=== PATIENT | male | born 1975 | race Caucasian/White ===

== ENCOUNTER 2016-12-28 16:37 | Emergency (ER) | payer MEDICAID ==
[~2016-12-28] VITALS: Ht 182.9 cm; Wt 131.5 kg
[2016-12-28 17:01] LABS: HEMOGLOBIN 16.1 g/dL (14.1-18.0); LYMPH # 1.2 K/mm3 (0.7-4.5); LYMPH % 14.6 % (10-50)
--- NOTE | 2016-12-28 17:09 | Emergency Room Report ---
History of Present Illness Time Seen by [id number] Presenting Problem in Triage Pt arrived:Walked Presenting Problem:PT C/O UPPER EPIGASTRIC PAIN THAT STARTED SUDDENLY THIS AM. 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 N Clinical Suspician of Infection? N Mental Status: 1 - Regular (Normal Baseline) Sepsis Risk:Low Sepsis Risk Have you (or family members/close friends) recently traveled outside the [place]? N If Yes, where/when: Have you had exposure to infectious disease within the past month? N TB? Other? Specify: Epigastric pain, acute onset at 0445 this morning while driving to work. Has hot taste in mouth; pain nonradiating. Ate lunch today, just a few hours ago, but vomited it back up. No blood from above or below. No fever or cough; no chest pain; no urinary sx. No cardiac RF's. ALLERGIES Coded Allergies: No Known Allergies (12/28/16) Home Medications Reported Medications No Known Home Medications History Medical History General CAD? No Angina: No DC: No Hypertension? No Hyperlipidemia? No CHF? No DVT? No PE? No COPD? No Asthma? No Anemia? No GERD? No Gastric ulcers? No GI Bleed? No Hernia? No Thyroid Problems? No Hypothyroidism? No CVA? No Seizures? No Diabetes? No Renal Insuffiency? No End Stage Renal Disease? No UTI? No Stones? No BPH? No GB Disease: No Nephritic Syndrome? No Asplenia? No Hepatitis? No Sickle Cell Disease? No Arthritis? No Migraines? No Cataracts? No Glaucoma? No MRSA? No HIV? No TB? No Anxiety? No Depression? No Cancer? No More? No Immunization Hx DT/Tetanus 1-4 YRS Flu NEVER Pneumonia NEVER Surgical Hx Previous Surgery?N Family History Family Hx Diabetes Yes CAD Yes Hypertension Yes Hyperlipidemia Yes Cancer Yes TB Yes Social History Smoking Hx Smoker: Never Smoker Tobacco: No Alcohol Alcohol: No Review of Systems All Other Systems Reviewed and Negative Gastrointestinal see HPI Physical Exam Vital Signs Vital Signs Date Time Temp Pulse Resp B/P Pulse O2 O2 Flow FiO2 Ox Delivery Rate 12/28 1815 80 20 164/90 91 12/28 1801 16 12/28 1733 16 12/28 1725 98.5 87 16 150/100 98 12/28 1643 98.5 94 16 128/76 98 12/28 1639 98.5 94 16 98 General Appearance normal appearance, WD/WN, no apparent distress, obese Eye Exam - bilateral eye normal exam, bilateral eye PERRL, bilateral eye EOMI Neck normal inspection, non-tender, supple, full range of motion Respiratory Status Yes: trachea midline, chest symmetrical, non tender chest. No: respiratory distress, tender on palpation, use of accessory muscles, pain on inspiration, pain on expiration, productive cough, non productive cough. Lung Sounds bilateral: normal breath sounds, lungs clear. Cardiovascular normal exam, regular rate/rhythm, no peripheral edema, no gallop, no JVD, no murmur, no rub, normal peripheral pulses Peripheral Pulses Pulses normal Yes Gastrointestinal normal bowel sounds, normal exam, non tender, soft, no organomegaly, no pulsatile mass, no guarding, no rebound (central obesity) Extremities non-tender, normal range of motion, normal inspection, normal capillary refill, no calf tenderness, no pedal edema Neurologic alert, normal exam, no motor/sensory deficits, oriented x 3 Glascow Coma Scale Glascow Coma Scale Response Value EYE response: 4 Spontaneously 4 MOTOR response: 6 OBEYS 6 VERBAL response: 5 Oriented & Converses 5 Total 15 Skin intact, normal color (diaphoretic, cool ) Medical Decision Making LABS/Meds/Orders Pt receiving controlled substance in ED? No Results/Orders Laboratory Tests 12/28/160: Creatine Kinase 230, CK-MB (CK-2) Rel Index 0.6, CK and CKMB Interp 1.4, Troponin I < 0.02 12/28/16 1650: Sodium 139, Potassium 3.8, Chloride 102, Carbon Dioxide 30, BUN 14, Creatinine 1.3, Estimated Creat Clear 142, Estimated GFR (MDRD) 61, Glucose 129 H, Calcium 9.3, Total Bilirubin 2.1 H, AST 796 *H, ALT 728 *H, Alkaline Phosphatase 106, Total Protein 8.1, Albumin 4.0, Globulin 4.1 H, Albumin/Globulin Ratio 1.0 L, Amylase 2991 *H, Lipase 55782 H, WBC 8.3, RBC 5.32, Hgb 16.1, Hct 47.6, MCV 89.6, RDW 13.3, Plt Count 138 L, MPV 8.9, Gran % 79.1, Gran # 6.6, Lymphocytes % 14.6, Monocytes % 5.2, Eosinophils % 0.8, Basophils % 0.3, Lymphocytes # 1.2, Monocytes # 0.4, Eosinophils # 0.1, Basophils # 0.0, PUBS MCHC 33.8, MCH 30.3 Current Medication Orders Sig/Estella Start time Last Medication Dose Route Stop Time Status Admin Morphine Sulfate 4 MG ONCE ONE 12/28 1800 DC 12/28 IV 12/28 1801 1801 Morphine Sulfate 0 .STK-MED ONE 12/28 1800 DC .ROUTE Morphine Sulfate 4 MG ONCE ONE 12/28 1730 DC 12/28 IV 12/28 1731 1733 Ondansetron HCl 4 MG ONCE ONE 12/28 1730 DC 12/28 IV 12/28 1731 1733 Sodium Chloride 1,000 ML .Q1H1M 12/28 1730 AC 12/28 IV 12/28 1830 1733 Sodium Chloride 10 ML PRN PRN 12/28 1730 AC IV 12/29 1727 Morphine Sulfate 0 .STK-MED ONE 12/28 1728 DC .ROUTE Ondansetron HCl 0 .STK-MED ONE 12/28 1728 DC .ROUTE Sodium Chloride 1,000 ML .STK-MED ONE 12/28 1728 DC IV Sodium Chloride 10 ML PRN PRN 12/28 1700 AC IV 12/29 1646 Orders Procedure Date/time Status DIET-NOTHING BY MOUTH 12/28 D Active ELECTROCARDIOGRAM REQUEST 12/28 170 Active CARDIAC ENZYMES 12/[address] ABD/PELVIS REQ 12/28 164 Complete IV SALINE LOCK 12/28 164 Active LIPASE 12/28 164 Complete CBC WITH AUTO DIFF 12/28 164 Complete CHEM 12 PROFILE 12/28 1646 Complete AMYLASE 12/28 164 Complete CM/EKG CM/EKG EKG rate, NSR, rhythm, no evid. of ischemic chgs, no ectopy, normal QRS, normal NH, normal EKG (NSR 82;) XRAY/CT/US XRAY/CT/US XRAY chest XR interpretation by reviewed by me (report reviewed) Xray Results normal/NAD, no infiltrates, normal heart size, normal lung inflation edson CT abdomen, pelvis CT interpretation by reviewed by me (report reviewed) Time results known: 175 CT Results "hazy" appearance c/w pancreatitis; "can't exclude noncalcified stones" in gall bladder. Consult MD Physician Consult 1 Time Called 173 Reason Surgical eval/care Comments d/w Dr. Mota; needs ERCP due to elevated bili; requesting transfer [facility]; paged. Physician Consult 2 Time Called 174 Reason Transfer to facility Comments [facility] Physician Consult 3 Time Called 175 Reason Transfer to facility Comments [facility] on divert; [facility] paged. Physician Consult 4 Time Called 181 Reason Transfer to facility Comments Dr. Jaime at [facility] is available for ERCP; recommends we d/w their hospitalist. Physician Consult 5 Time Called 182 Reason Transfer to facility Comments Dr. Kennedy accepting MD/hospitalist at [facility] with Dr. Jaime GI available with facility capacity to perform ERCP. Departure Departure Time of Disposition 1821 Disposition DC/XFER from ER to [facility] Clinical Impression Primary Impression: Pancreatitis Qualifiers: Chronicity: acute Pancreatitis type: other Acute pancreatitis complication: unspecified Qualified Code: K85.80 - Other acute pancreatitis without necrosis or infection Secondary Impressions: Total bilirubin, elevated Condition STABLE Prescriptions Current Visit Scripts No Known Home Medications ED Critical Care Critical Care No
--- NOTE | 2016-12-28 17:54 | RADIOLOGY REPORT PS360 ---
CHEST-PORTABLE Ordering physician: Olive Lafleur MD Age: 41 years Male INDICATION: Epigastric pain.EPIGASTRIC PAIN PROCEDURE: CHEST-PORTABLE FINDINGS: No previous chest films Lungs well expanded and clear with nothing definitely acute. Upper normal markings right perihilar region most likely accentuated by technique.. No pneumothorax. No pleural effusion. Heart normal size. Normal pulmonary vascularity. Hilar and mediastinal structures appear satisfactory. Chest wall unremarkable. T-spine intact. IMPRESSION ----- Nothing definitely acute
--- NOTE | 2016-12-28 17:54 | RADIOLOGY REPORT PS360 ---
CT ABD PELVIS W/O CONTRAST HISTORY: EPIGASTRIC PAIN WITH VOMITING2 hours. Nonsmoker. No surgery. No trauma. Ordering Physician: Olive Lafleur MD Patient Age: 41 years: Male TECHNIQUE: Helical CT scanning performed through the abdomen and pelvis with no oral or IV contrast. COMPARISON. No previous studies for comparison FINDINGS Lung bases appear clear with no active disease. Calcified nodes right perico from old granulomatous disease. Abdomen and pelvis. The lack of oral and IV contrast decreases sensitivity. Liver. Prominent diffuse fatty changes in liver . No focal lesions. No biliary ductal dilatation. Gallbladder. Partially contracted. Cannot exclude sludge or noncalcified gallstone towards fundus Pancreas. Hazy appearance about the pancreas suspect for pancreatitis. But this is most evident about the head of the pancreas but also hazy appearance about the anterior aspect the pancreas.. There may be some wispy fluid distal and anterior margin of the pancreas, posterior to the stomach as seen on axial image 39. Findings suspect for pancreatitis Requires laboratory correlation No focal hemorrhage nor definitive significant focal fluid collections as of yet, but may require follow-up depending on laboratory and clinical picture Spleen. 14 cm length . Adrenals unremarkable. Kidneys. No tract calculi nor obstruction. Ureters appear satisfactory. Pelvis. No free fluid. No adenopathy. No mesenteric or retroperitoneal adenopathy. Stomach. Moderate food filled stomach. Small bowel. Slight increased fluid throughout small bowel most evident proximal small bowel. No significant small bowel dilatation. Appendix appears normal. Terminal ileum satisfactory. Minimal stool throughout colon. IMPRESSION: 1. Acute pancreatitis Wispy, hazy appearance about the anterior margin pancreas compatible with acute pancreatitis. May require follow-up CT particularly if symptoms persist 2. Hepatic steatosis. Prominent diffuse fatty changes in liver. No focal lesions. 3. Gallbladder. Slight increased density at fundus the gallbladder suspect for sludge. Difficult to exclude noncalcified stones or mild wall thickening. Consider follow-up ultrasound as well. 4. No biliary ductal dilatation
[2016-12-28 18:57] VITALS: BP 178/113
[2017-01-10] MEDS ORDERED: AUGMENTIN1 TA1 PO (12:39)
[2017-01-10] MEDS ORDERED: PERCOCET1 TAB PO (12:41)
== END 2016-12-28 19:09 | disposition short-term general hospital (02) ==
LOC: ER 16:37
PROVIDERS: Emergency Medicine
DX: K85.80 Other acute pancreatitis without necrosis or infection (principal); R82.2 Biliuria
CPT/HCPCS: J2405